=== PATIENT | female | born 1995 | race Two or more races ===

== ENCOUNTER → 2020-04-02 16:06 | Outpatient (BNVA) | payer MEDICAID, SELFPAY | PROVIDERS: Family Provider Family Medicine; Visit Provider Nurse Practitioner Family | DX: Z34.92 Encounter for supervision of normal pregnancy, unspecified, second trimester (principal); Z3A.18 18 weeks gestation of pregnancy; Z20.828 Contact with and (suspected) exposure to other viral communicable diseases | CPT/HCPCS: 81025; 87635 ==

== ENCOUNTER → 2020-11-20 15:22 | Outpatient (BNVA) | payer MEDICAID, SELFPAY | PROVIDERS: Family Provider Family Medicine; Visit Provider Nurse Practitioner | DX: Z32.01 Encounter for pregnancy test, result positive (principal); Z3A.18 18 weeks gestation of pregnancy; N91.2 Amenorrhea, unspecified | CPT/HCPCS: 81025 ==

== ENCOUNTER → 2020-12-13 11:38 | Outpatient (BNVA) | payer MEDICAID, SELFPAY | PROVIDERS: Family Provider Family Medicine; Visit Provider Nurse Practitioner Women's Health | DX: O99.340 Other mental disorders complicating pregnancy, unspecified trimester (principal); F32.9 Major depressive disorder, single episode, unspecified; F41.9 Anxiety disorder, unspecified; Z87.59 Personal history of other complications of pregnancy, childbirth and the puerperium | CPT/HCPCS: 81000 ==

== ENCOUNTER → 2020-12-18 15:00 | Outpatient (BNVA) | payer MEDICAID, SELFPAY | PROVIDERS: Family Provider Family Medicine; Visit Provider Obstetrics & Gynecology | DX: Z34.80 Encounter for supervision of other normal pregnancy, unspecified trimester (principal) | CPT/HCPCS: 80307; 81000; 82607; 82728; 82746; 83550; 85027; 86592; 86762; 86787; 86803; 86850; 86900; 87086; 87340; 87806 ==

== ENCOUNTER → 2021-01-08 15:37 | Outpatient (BNVA) | payer MEDICAID, SELFPAY | PROVIDERS: Family Provider Family Medicine; Visit Provider Obstetrics & Gynecology | DX: Z34.80 Encounter for supervision of other normal pregnancy, unspecified trimester (principal); F41.9 Anxiety disorder, unspecified; F32.9 Major depressive disorder, single episode, unspecified | CPT/HCPCS: 81000; 87491; 87591; 88175 ==

== ENCOUNTER → 2021-01-29 16:16 | Outpatient (BNVA) | payer MEDICAID, SELFPAY | PROVIDERS: Family Provider Family Medicine; Visit Provider Nurse Practitioner Women's Health | DX: Z34.80 Encounter for supervision of other normal pregnancy, unspecified trimester (principal) | CPT/HCPCS: 84315; 87077; 87086; 87184 ==

== ENCOUNTER → 2021-03-26 08:30 | Outpatient (BNVA) | payer MEDICAID, SELFPAY | PROVIDERS: Family Provider Family Medicine; Visit Provider Nurse Practitioner Women's Health | DX: O99.019 Anemia complicating pregnancy, unspecified trimester (principal); R82.71 Bacteriuria; O99.320 Drug use complicating pregnancy, unspecified trimester; F41.9 Anxiety disorder, unspecified; F32.9 Major depressive disorder, single episode, unspecified; D64.9 Anemia, unspecified; Z3A.00 Weeks of gestation of pregnancy not specified | CPT/HCPCS: 80307; 81000; 85025; 87086 ==

== ENCOUNTER → 2021-04-23 12:00 | Outpatient (BNVA) | payer MEDICAID, SELFPAY | PROVIDERS: Family Provider Family Medicine; Visit Provider Nurse Practitioner Women's Health | DX: O99.320 Drug use complicating pregnancy, unspecified trimester (principal); F41.9 Anxiety disorder, unspecified; F32.9 Major depressive disorder, single episode, unspecified; R82.71 Bacteriuria; O99.019 Anemia complicating pregnancy, unspecified trimester | CPT/HCPCS: 81000; 82950; 85025 ==

== ENCOUNTER → 2021-05-07 10:37 | Outpatient (BNVA) | payer MEDICAID, SELFPAY | PROVIDERS: Family Provider Family Medicine; Visit Provider Obstetrics & Gynecology | DX: Z34.80 Encounter for supervision of other normal pregnancy, unspecified trimester (principal); Z78.9 Other specified health status | CPT/HCPCS: 81000 ==

== ENCOUNTER → 2021-05-14 15:27 | Outpatient (BNVA) | payer MEDICAID, SELFPAY | PROVIDERS: Family Provider Family Medicine; Visit Provider Internal Medicine | DX: O99.019 Anemia complicating pregnancy, unspecified trimester (principal) | CPT/HCPCS: 83550; 85045 ==

== ENCOUNTER → 2021-05-21 10:43 | Outpatient (BNVA) | payer MEDICAID, SELFPAY | PROVIDERS: Family Provider Family Medicine; Visit Provider Obstetrics & Gynecology | DX: Z34.80 Encounter for supervision of other normal pregnancy, unspecified trimester (principal) | CPT/HCPCS: 80307; 81000 ==

== ENCOUNTER → 2021-06-02 15:51 | Outpatient (BNVA) | payer MEDICAID, SELFPAY | PROVIDERS: Family Provider Family Medicine; Visit Provider Obstetrics & Gynecology | DX: Z34.80 Encounter for supervision of other normal pregnancy, unspecified trimester (principal) | CPT/HCPCS: 81000 ==

== ENCOUNTER → 2021-06-18 09:44 | Outpatient (BNVA) | payer MEDICAID, SELFPAY | PROVIDERS: Family Provider Family Medicine; Visit Provider Obstetrics & Gynecology | DX: Z34.80 Encounter for supervision of other normal pregnancy, unspecified trimester (principal) | CPT/HCPCS: 81000; 85025 ==

== ENCOUNTER → 2021-06-24 10:44 | Outpatient (BNVA) | payer MEDICAID, SELFPAY | PROVIDERS: Family Provider Family Medicine; Visit Provider Obstetrics & Gynecology | DX: Z34.80 Encounter for supervision of other normal pregnancy, unspecified trimester (principal) | CPT/HCPCS: 81000 ==

== ENCOUNTER 2021-06-29 20:49 | Outpatient (CLI) | payer MEDICAID, SELFPAY ==
[2021-06-29 20:40] VITALS: BMI 24.3
[2021-06-29 20:59] VITALS: BP 116/56; PULSE 70; TEMP 36.3
[2021-06-29 21:21] VITALS: RESP 16
[2021-06-29 21:27] LABS: Nitrazine Paper, PH Negative
[2021-06-29 22:04] VITALS: BP 107/59; PULSE 81; TEMP 36.7
[2021-06-29 22:18] VITALS: BP 107/59; PULSE 81; RESP 16; TEMP 36.7
== END 2021-06-29 22:18 | disposition home or self-care (01) ==
LOC: OPOB 20:51 → OBGYN 20:52
PROVIDERS: Family Provider Family Medicine; Visit Provider Obstetrics & Gynecology
DX: O26.899 Other specified pregnancy related conditions, unspecified trimester (principal); Z3A.00 Weeks of gestation of pregnancy not specified; R10.9 Unspecified abdominal pain; N89.8 Other specified noninflammatory disorders of vagina
CPT/HCPCS: 59025; 83986; 99211

== ENCOUNTER → 2021-07-02 14:38 | Outpatient (BNVA) | payer MEDICAID, SELFPAY | PROVIDERS: Family Provider Family Medicine; Visit Provider Nurse Practitioner Women's Health | DX: Z34.80 Encounter for supervision of other normal pregnancy, unspecified trimester (principal) | CPT/HCPCS: 81000 ==

== ENCOUNTER 2021-07-04 09:49 | Inpatient (IN) | payer MEDICAID, SELFPAY ==
[2021-07-04] VITALS (18 sets, daily range): BP systolic 95–134; BP diastolic 53–70; PULSE 68–93; RESP 16–18; TEMP 36.5–36.8; O2SAT 97–99; BMI 24.3
[2021-07-04 09:56] LABS: Basophils # 0.1 10^3/uL (0.0-0.1); Basophils % 0.6 %; Eosinophils # 0.1 10^3/uL (0.0-0.8); Eosinophils % 1.1 %; Hematocrit 31.2 % (37.0-47.0); Hemoglobin 10.5 g/dL (11.5-15.3); Lymphocytes # 1.8 10^3/uL (0.8-4.8); Lymphocytes % 16.1 %; Mean Corpuscular HGB Conc 33.7 g/dL (30.0-36.0); Mean Corpuscular Hemoglobin 28.6 pg (28.0-34.0); Mean Platelet Volume 9.7 fL (7.4-10.4); Monocytes % 8.8 %; Neutrophils # 7.95 10^3/uL (1.8-7.7); Neutrophils % 72.8 %; Nucleated Red Blood Cells % 0 %; Platelet Count 182 10^3/cmm (130-400); Red Blood Count 3.67 10^6/uL (4.1-5.3); Red Cell Distribution Width 13.2 % (12.1-15.1); White Blood Count 10.9 10^3/uL (4.0-10.0)
[2021-07-04] MEDS: dextrose 5%-lactated ringers 1,000 ML 125 ML IV (10:03)
[2021-07-04] MEDS: ampicillin 2,000 MG in sodium chloride 0.9% (plus) 50 ML 100 MG IV (10:04)
[2021-07-04] MEDS: oxytocin 30 UNIT/500 ML BAG 600 UNIT IV (10:28)
--- NOTE | 2021-07-04 10:36 | PM.OPHPUD ---
Labor & Delivery H&P Update Date of Procedure: July 04, 2021 Date H&P Performed: 07/02/21 H&P update information: I have reviewed H&P completed within last 30 days, I have examined patient prior to procedure and Changes to prior documentation as noted here (cervix: 10/100%/+1/VX/SROM clear) Admission Diagnosis:
--- NOTE | 2021-07-04 10:37 | PM.DELIVERY ---
Delivery Note: Date of delivery: July 04, 2021 Pre-delivery diagnoses: Term Post-delivery diagnoses: Term delivered Op report anesthesia: None Estimated blood loss (mL): 300 Pre-Delivery Course: The patient is a 26yo 5, Para 3,0,1,3 at 38+2 weeks EGA who [place] [facility] [place] [facility]. She has been experiencing painful uterine contractions for the past 3 hours. The contractions are occurring at 1 minute intervals with approximately 40 second duration. She continues to feel movement between the contractions. She refers vaginal bleeding or rupture of membranes. Initial exam by the nurse upon arrival to L&D was 7 cm 90% effacement she progressed rapidly to full dilation and 100% effacement. LMP of 10/09/2020 EDC of 07/16/2021 CC: Onset of labor at term. HPI: Received appropriate care. Daily vitamins since start of care. care complicated by anemia during , drug use during and GBS bacteriuria. labs have all been normal, including negative for HIV. She was found to positive for Group B Strep from screening at 36 weeks. She has gained approximately 20 lbs throughout the . She denies a history of HTN during . Glucose tolerance screening for gestational diabetes was negative. Delivery: The patient was noted to be complete and pushing, so was placed in the dorsal lithotomy position, prepped and draped in the usual sterile fashion for a vaginal delivery. Pt. Noted to have no anesthesia. At 1020 the patient delivered a viable female infant at 38 weeks weighing 2470 g with scores of 9 and 9 at one and five minutes, respectively. The vertex was delivered spontaneously over an intact perineum. The patient was asked to push and the head delivered spontaneously in the RICO position, over an intact perineum. A nuchal cord was checked and none noted. The anterior shoulder delivered easily and the posterior shoulder followed. The remainder of the was easily delivered and the oropharynx and nasopharynx was bulb suctioned. The was noted to have spontaneous cry and spontaneous movement of all four extremities. The cord was clamped x 2 and cut and noted to have 2 arteries and one vein. The infant was passed to the mother's abdomen where nursing personnel were in attendance. Cord blood and cord pH were then obtained. The placenta delivered intact spontaneously and the uterus was explored. 20 units of Pitocin was placed in the IV bag to firm the uterus. Examination of the cervix and vaginal vault did not reveal any lacerations. A vaginal pack was then placed. Examination of the perineum showed no lacerations. The vaginal pack was then removed. The patient tolerated this procedure well, and recovered in L&D with her infant in their LDR room. All sponge and needle counts were correct. History History History 5 Term 3 Miscarriages/Ectopic 1 0 Living Children 3 A&P Assessment and plan (1) Anemia affecting , antepartum: Status: Acute (2) Drug use affecting , antepartum: Status: Acute (3) Group B streptococcal bacteriuria: Status: Acute (4) Anxiety and depression: Status: Acute (5) Term delivered: Status: Acute Coding Level of Care Code Acute Magneto Repairer for Chg Fwd Diagnoses Term delivered O80 Anemia affecting , antepartum O99.019 Drug use affecting , antepartum O99.320 Group B streptococcal bacteriuria R82.71 Anxiety and depression F41.9; F32.9
[2021-07-04 10:48] LABS: Amphetamines Screen Urine Negative (Negative); Barbiturates Screen Urine Negative (Negative); Benzodiazepines Screen Urine Negative (Negative); Cocaine Screen Urine Negative (Negative); Opiate Screen Urine Negative (Negative); PCP Screen Urine Negative (Negative); THC Screen Urine Positive (Negative)
[2021-07-04] MEDS: HYDROcodone-acetaminophen 5-325 mg Tablet PO ×2 (12:18→17:35)
[2021-07-04] MEDS: ampicillin 2,000 MG in sodium chloride 0.9% (plus) 50 ML IV (12:20)
[2021-07-04] MEDS: ibuprofen 800 mg tablet PO ×2 (15:35→20:41)
[2021-07-04] MEDS: docusate sodium 100 mg Capsule PO (17:35)
[2021-07-04] MEDS: benzocaine-menthol 78 gm Canister 1 SPRAY TOPICAL (20:40)
[2021-07-04] MEDS: lanolin oint 7 gm 1 APPLIC TOPICAL (20:41)
[2021-07-04 23:00] LABS: Hematocrit 28.3 % (37.0-47.0); Hemoglobin 9.4 g/dL (11.5-15.3); Mean Corpuscular HGB Conc 33.2 g/dL (30.0-36.0); Mean Corpuscular Hemoglobin 28.8 pg (28.0-34.0); Mean Corpuscular Volume 86.8 fl (81-99); Mean Platelet Volume 9.7 fL (7.4-10.4); Platelet Count 172 10^3/cmm (130-400); Red Blood Count 3.26 10^6/uL (4.1-5.3); Red Cell Distribution Width 13.5 % (12.1-15.1); White Blood Count 12.2 10^3/uL (4.0-10.0)
[2021-07-05 00:40] VITALS: BP 123/70; PULSE 89; RESP 16; TEMP 36.5; O2SAT 99
[2021-07-05] MEDS: HYDROcodone-acetaminophen 5-325 mg Tablet PO ×3 (01:42→17:43)
[2021-07-05 04:40] VITALS: BP 103/64; PULSE 66; RESP 16; TEMP 36.6; O2SAT 98
[2021-07-05] MEDS: acetaminophen 325 mg Tablet 650 MG PO (06:01)
--- NOTE | 2021-07-05 06:15 | PC.NURSE ---
Patient complaining of increased uterine pain after breast feeding . This nurse checked the MAR and patient can have acetaminophen at this time and [place] at 0742. Patient also give a K-pad at this time to help with pain and discomfort.
[2021-07-05] MEDS: ibuprofen 800 mg tablet PO ×2 (08:01→16:31)
[2021-07-05] MEDS: prenatal vitamin Capsule 1 CAP PO (08:01)
[2021-07-05] MEDS: docusate sodium 100 mg Capsule PO ×2 (08:01→17:43)
[2021-07-05 09:30] VITALS: BP 91/54; PULSE 73; RESP 16; TEMP 36.4
--- NOTE | 2021-07-05 13:48 | PM.DCS ---
Discharge Providers Date of Admission: 07/04/21 09:49 Date of Discharge: July 05, 2021 Attending Provider at Admission: Conrad Ward MD Attending Provider at Discharge: Conrad Ward MD Primary Care Provider: Daniel Cordero DO Diagnoses at Discharge Discharge Diagnosis (1) Term delivered: Status: Acute (2) Anemia affecting , antepartum: Status: Acute (3) Drug use affecting , antepartum: Status: Acute (4) Group B streptococcal bacteriuria: Status: Acute (5) Anxiety and depression: Status: Acute Permanent problem details: Diagnosed first at the age of 14 and was on medication. Has been on medication on and off in the past though not for a long while. Does not have a therapist. Reason for Visit Reason for Visit: labor Hospital Course Hospital Course The patient was admitted in active labor. she had spontaneous delivery of a term female . She is doing well on PPD#1 and is ready for discharge. Physical Exam Narrative: EXAM NARRATIVE: The patient is doing well today. She is breast feeding. minimal lochia. She is ambulating and urinating without difficulty. Const: COMMON NORMALS: no acute distress, average body habitus, patient oriented x3, no limitations, healthy appearing, alert and well nourished GENERAL APPEARANCE: cooperative, comfortable, well kempt and well developed ORIENTATION/CONSCIOUSNESS: Yes awake, Yes oriented to person, Yes oriented to place and Yes oriented to time Resp: COMMON NORMALS: normal respiratory effort EFFORT & INSPECTION: Yes able to speak in complete sentences GI: COMMON NORMALS: Soft to palpation and non-tender PALPATION: Yes Soft to palpation Extremity: COMMON NORMALS: no calf tenderness Neuro: COMMON NORMALS: patient oriented x3 SENSORIUM/ORIENTATION: Yes alert, Yes oriented to person, Yes oriented to place and Yes oriented to time Psych: APPEARANCE: Yes well kempt Discharge Data Data Completed and Pending: Labs from last 24 hours 07/04/21 22:45 WBC 12.2 H RBC 3.26 L Hgb 9.4 L Hct 28.3 L MCV 86.8 MCH 28.8 MCHC 33.2 RDW 13.5 Plt Count 172 MPV 9.7 Vitals: Last Vital Signs Temp 97.6 F 07/05/21 09:30 Pulse 73 07/05/21 09:30 Resp 16 12/25/21 09:30 BP 91/54 07/05/21 09:30 Pulse Ox 98 07/05/21 04:40 Discharge Plan Discharge Patient Disposition: Home Condition: Stable Prescriptions: Continued ferrous sulfate 325 mg (65 mg iron) tablet,delayed release (DR/EC) 325 mg PO BID Qty: 60 RF: 1 fluoxetine 20 mg capsule 20 mg PO DAILY Qty: 30 RF: 6 Multi 27-800 mg-mcg tablet 1 tab PO DAILY Qty: 30 RF: 10 (DME) breast pump [Pump In Style Advanced] Device See Rx Instructions .MEDSUPPLY Qty: 1 RF: 0 Discharge Orders: Discharge Order (Routine); Ordered 07/05/21 Ordered By: Rossnaa Galvan Patient Instructions: Opioid Safety Discharge Attestations Time Spent in Discharge Care*: less than 30 min Quality Metrics Clinical Quality Measures During this hospital stay, did patient experience: None Coding Level of Care Code Acute Chg FW DC note Diagnoses Term delivered O80 Anemia affecting , antepartum O99.019 Drug use affecting , antepartum O99.320 Group B streptococcal bacteriuria R82.71 Anxiety and depression F41.9; F32.9
[2021-07-05 16:20] VITALS: BP 101/63; PULSE 79; RESP 16; TEMP 36.7
[2021-07-05 17:45] VITALS: BP 101/63; PULSE 79; RESP 16; TEMP 36.7
== END 2021-07-05 17:45 | disposition home or self-care (01) | DRG 807 ==
LOC: OPOB 09:50 → OBGYN 09:50
PROVIDERS: Admitting Provider Obstetrics & Gynecology; Family Provider Family Medicine; Visit Provider Obstetrics & Gynecology
DX: O99.324 Drug use complicating childbirth (principal); Z37.0 Single live birth; F12.90 Cannabis use, unspecified, uncomplicated; O99.02 Anemia complicating childbirth; D64.9 Anemia, unspecified; O99.820 Streptococcus B carrier state complicating pregnancy; O99.344 Other mental disorders complicating childbirth; F41.8 Other specified anxiety disorders; Z3A.38 38 weeks gestation of pregnancy; Z87.891 Personal history of nicotine dependence
CPT/HCPCS: 36415; 59025; 59409; 80306; 85025; 85027; 99211; J0290

== ENCOUNTER → 2022-05-04 08:37 | Outpatient (BNVA) | payer MEDICAID, SELFPAY | PROVIDERS: Family Provider Family Medicine; Visit Provider Obstetrics & Gynecology | DX: Z34.90 Encounter for supervision of normal pregnancy, unspecified, unspecified trimester (principal) | CPT/HCPCS: 80307; 84315; 84443; 85025; 86592; 86762; 86803; 86850; 86900; 87086; 87340; 87491; 87591; 87661; 87806 ==

== ENCOUNTER → 2022-05-22 09:40 | Outpatient (BNVA) | payer MEDICAID, SELFPAY | PROVIDERS: Family Provider Family Medicine; Visit Provider Obstetrics & Gynecology | DX: O09.30 Supervision of pregnancy with insufficient antenatal care, unspecified trimester (principal); Z3A.00 Weeks of gestation of pregnancy not specified | CPT/HCPCS: 81000; 82950; 85025 ==

== ENCOUNTER → 2022-06-12 11:21 | Outpatient (BNVA) | payer MEDICAID, SELFPAY | PROVIDERS: Family Provider Family Medicine; Visit Provider Obstetrics & Gynecology | DX: Z34.80 Encounter for supervision of other normal pregnancy, unspecified trimester (principal) | CPT/HCPCS: 82728; 82746; 82951; 82952; 83550 ==

== ENCOUNTER → 2022-06-26 08:06 | Outpatient (BNVA) | payer MEDICAID, SELFPAY | PROVIDERS: Family Provider Family Medicine; Visit Provider Obstetrics & Gynecology | DX: Z34.80 Encounter for supervision of other normal pregnancy, unspecified trimester (principal) | CPT/HCPCS: 81000; 85025 ==

== ENCOUNTER → 2022-07-10 14:00 | Outpatient (BNVA) | payer MEDICAID, SELFPAY | PROVIDERS: Family Provider Family Medicine; Visit Provider Obstetrics & Gynecology | DX: Z34.80 Encounter for supervision of other normal pregnancy, unspecified trimester (principal) | CPT/HCPCS: 80307; 81003 ==

== ENCOUNTER → 2022-07-20 10:00 | Outpatient (BNVA) | payer MEDICAID, SELFPAY | PROVIDERS: Family Provider Family Medicine; Visit Provider Obstetrics & Gynecology | DX: Z34.80 Encounter for supervision of other normal pregnancy, unspecified trimester (principal) | CPT/HCPCS: 87081 ==

== ENCOUNTER → 2022-07-27 15:50 | Outpatient (BNVA) | payer MEDICAID, SELFPAY | PROVIDERS: Family Provider Family Medicine; Visit Provider Obstetrics & Gynecology | DX: Z34.80 Encounter for supervision of other normal pregnancy, unspecified trimester (principal) | CPT/HCPCS: 81000 ==

== ENCOUNTER 2022-08-03 14:34 | Inpatient (IN) | payer MEDICAID, SELFPAY ==
[2022-08-03] VITALS (87 sets, daily range): BP systolic 93–150; BP diastolic 44–77; PULSE 68–144; RESP 15–18; TEMP 36.6–37.1; O2SAT 92–100; BMI 23.7
[2022-08-03 15:08] LABS: Basophils # 0.1 10^3/uL (0.0-0.1); Basophils % 0.5 %; Eosinophils # 0.1 10^3/uL (0.0-0.8); Eosinophils % 0.7 %; Hematocrit 29.2 % (37.0-47.0); Hemoglobin 9.3 g/dL (11.5-15.3); Lymphocytes # 1.9 10^3/uL (0.8-4.8); Lymphocytes % 14.9 %; Mean Corpuscular HGB Conc 31.8 g/dL (30.0-36.0); Mean Corpuscular Hemoglobin 26.7 pg (28.0-34.0); Mean Corpuscular Volume 83.9 fl (81-99); Monocytes # 0.9 10^3/uL (0.2-0.9); Monocytes % 7.3 %; Neutrophils # 9.52 10^3/uL (1.8-7.7); Nucleated Red Blood Cells % 0 %; Platelet Count 186 10^3/cmm (130-400); Red Blood Count 3.48 10^6/uL (4.1-5.3); Red Cell Distribution Width 13.7 % (12.1-15.1); White Blood Count 12.5 10^3/uL (4.0-10.0)
[2022-08-03] MEDS: dextrose 5%-lactated ringers 1,000 ML 125 ML IV ×2 (15:08→20:01)
[2022-08-03] MEDS: ampicillin 2,000 MG in sodium chloride 0.9% (plus) 50 ML 100 MG IV (15:08)
[2022-08-03 15:30] LABS: Amphetamines Screen Urine Negative (Negative); Barbiturates Screen Urine Negative (Negative); Benzodiazepines Screen Urine Negative (Negative); Cocaine Screen Urine Negative (Negative); Opiate Screen Urine Negative (Negative); PCP Screen Urine Negative (Negative); THC Screen Urine Positive (Negative)
[2022-08-03] MEDS: oxytocin 30 UNIT/500 ML BAG IV (16:03)
--- NOTE | 2022-08-03 16:48 | P.HP_ITS ---
Providers/Chief Complaint Admitting Physician: Monika Mao DO Primary ROAST MASTER: Dr. Galvan Primary Care Provider: Daniel Cordero DO Chief Complaint: CONTRACTIONS HPI ROAST MASTER History of Present Illness Ruth Frazier is a 27 year old female [id number] with RYLAN 08/07/2022 at 39 point 3/7 weeks gestation. Patient presented to labor and delivery with complaints of uterine contractions onset 10:00 this morning every 5 to 7 minutes. She denied any vaginal bleeding or leakage of fluid. Patient denies any complications through this course. After observation of patient on EFM irregular contractions was noted patient was counseled on augmenting labor versus discharge to home and returning when contractions or at 2 to 4 minutes apart. Patient requested to stay for induction of labor. EFM?category 1 Cervix?4 to 5 cm / 80% effaced/-3 vertex presentation confirmed by ultrasound. AROM?meconium stained fluid noted. Pitocin augmentation presently at 3 milliunits. Contractions mild and irregular. Present Details : 5 Para: 4 Labs Rubella: Immune RPR: Negative GBS: Positive Review of Systems General: Reports: 10 or more systems reviewed and unremarkable except in HPI and below Medications/Allergies Home Medications Medication Instructions Recorded Confirmed Last Taken Type vit 122-ferrous fumarate 1 tab PO DAILY #30 tabs 11/20/20 08/03/22 1 Day Ago Rx 27 mg iron-folic acid 800 mcg ~06/28/21 tablet ( Multi) citalopram 10 mg tablet (Celexa) 10 mg PO DAILY #30 tabs 05/06/22 08/03/22 Unknown Rx ferrous sulfate 325 mg (65 mg 325 mg PO BID #60 tabs 06/26/22 08/03/22 Unknown Rx iron) tablet Allergies Allergy/AdvReac Type Severity Reaction Status Date / Time No Known Allergies Allergy Verified 07/27/22 15:04 PFS ROAST MASTER PFSH: Medical History Anxiety and depression Diagnosed first at the age of 14 and was on medication. Has been on medication on and off in the past though not for a long while. Does not have a therapist. No pertinent past medical history Denies diabetes, asthma, hypertension, seizures, DVT/PE PCP: [facility] Surgical History History of tonsillectomy and adenoidectomy At the age of 12 Hx of appendectomy 2014--laparoscopic procedure Hx of hernia repair 2014--done at same time as appendectomy. Per patient no mesh was used S/P dilation and curettage October 2019 for VIP Family History Mother Breast cancer Diagnosed at approximately age 50 Unknown Unknown family medical history patient was adopted and does not know all the details of her family history. Denies family history of Colon cancer Ovarian cancer Diabetes Heart disease Hyperlipidemia Bleeding disorder Hypertension Uterine cancer Thyroid disease Stroke History History History 6 Term 4 0 Miscarriages/Ectopic 1 Living Children 4 Care RYLAN Calculator Estimated Delivery Date Method Current WG Current Estimate 08/07/22 Ultrasound #1 39w 3d Vitals/I&O/Wt Last Vital Signs Pulse 79 08/03/22 16:39 Resp 15 08/03/22 14:46 BP 114/55 08/03/22 16:39 O2 Del Method 08/03/22 15:24 08/03/22 08/03/22 08/03/22 06:59 14:59 22:59 Intake Total 1.517 / 1.517 Balance 1.517 / 1.517 Weight last 48 hrs Weight 66.678 kg Physical Exam Narrative: 27-year-old -[place] female alert and oriented no acute distress. HENMT: COMMON NORMALS: normocephalic, moist oral mucous membranes and dentition normal Resp: COMMON NORMALS: normal respiratory effort, No retractions and clear to auscultation bilaterally Cardio: COMMON NORMALS: no JVD, regular rate and regular rhythm Back/Pelvis: OTHER: See above for pelvic exam Extremity: COMMON NORMALS: no clubbing, cyanosis or edema, no calf tenderness and no pedal edema Neuro: COMMON NORMALS: patient oriented x3, CN's II-XII intact bilaterally, moves all extremities and deep tendon reflexes 2+ bilaterally Data 08/03/22 14:55 Results OB Labs labs reviewed. A&P Assessment and plan (1) Supervision of other normal : A. 1. 27yo emale at 39.3 wk IUP with Irregular Contractions 2. GBS Positive 3. Hx of Anxiety 4. UDS Positive (THC) 5. Anemia P. Admit for Augmentation of labor (2) GBS (group B Streptococcus carrier), +RV culture, currently : Attestations 2 Medical Necessity Statement*: Patient admitted to labor and delivery for augmentation of labor. Coding Level of Care Code Acute Code for Chg Fwd Diagnoses Supervision of other normal Z34.80 GBS (group B Streptococcus carrier), +RV culture, currently O99.820
[2022-08-03] MEDS: ampicillin 1,000 MG in sodium chloride 0.9% (plus) 50 ML 100 MG IV (17:26)
[2022-08-03] MEDS: fentaNYL 50 mcg/mL INJ 2mL IVP ×2 (17:26→18:08)
[2022-08-03] MEDS: miSOPROStol 200 mcg Tablet 800 MCG PR (18:53)
[2022-08-03 19:17] LABS: Basophils # 0.1 10^3/uL (0.0-0.1); Basophils % 0.4 %; Eosinophils # 0.1 10^3/uL (0.0-0.8); Eosinophils % 0.7 %; Hematocrit 22.5 % (37.0-47.0); Lymphocytes # 1.8 10^3/uL (0.8-4.8); Lymphocytes % 14.4 %; Mean Corpuscular HGB Conc 31.1 g/dL (30.0-36.0); Mean Corpuscular Hemoglobin 27.7 pg (28.0-34.0); Mean Corpuscular Volume 88.9 fl (81-99); Mean Platelet Volume 9.8 fL (7.4-10.4); Monocytes # 1.1 10^3/uL (0.2-0.9); Monocytes % 8.7 %; Neutrophils # 9.23 10^3/uL (1.8-7.7); Neutrophils % 75.1 %; Nucleated Red Blood Cells % 0 %; Platelet Count 171 10^3/cmm (130-400); Red Blood Count 2.53 10^6/uL (4.1-5.3); Red Cell Distribution Width 13.7 % (12.1-15.1); White Blood Count 12.3 10^3/uL (4.0-10.0)
--- NOTE | 2022-08-03 19:26 | ANES.PREANE2 ---
Pre-Anesthetic Assessment Height/Weight: Height 1.68 m Weight 66.678 kg Pulse Resp BP O2 Del Method 105 H 18 146/58 08/03/22 18:25 08/03/22 18:08 08/03/22 18:25 08/03/22 15:24 Was Beta Mukul taken within 24 hours: N/A Was Clonidine taken within 24 hours: N/A Social No alcohol and No tobacco Exam alert, oriented x 3, clear to auscultation bilaterally and regular rate & rhythm Airway Submandibular: within normal limits Cervical ROM: within normal limits Mallampati: Class II Dentition: full History/ROS No significant history except as noted and No significant complaints Pulmonary None reported CV/HEM None reported None reported Hepatic None reported GI None reported Metabolic None reported Musc/skel None reported Neuropsych Anxiety and Depression Anesthetic Plan ASA status: 2E Anesthesia: Anesthesia Evaluation and General Risk of > 500 ml blood loss (7ml/kg in children): Yes, adequate IV access and fluids planned Medications/Allergies Home Medications Medication Instructions Recorded Confirmed Last Taken Type vit 122-ferrous fumarate 1 tab PO DAILY #30 tabs 11/20/20 08/03/22 1 Day Ago Rx 27 mg iron-folic acid 800 mcg ~06/28/21 tablet ( Multi) citalopram 10 mg tablet (Celexa) 10 mg PO DAILY #30 tabs 05/06/22 08/03/22 Unknown Rx ferrous sulfate 325 mg (65 mg 325 mg PO BID #60 tabs 06/26/22 08/03/22 Unknown Rx iron) tablet Allergies Allergy/AdvReac Type Severity Reaction Status Date / Time No Known Allergies Allergy Verified 07/27/22 15:04 Current Medications Generic Name Dose Route Start Last Admin Trade Name Freq PRN Reason Stop Dose Admin Fentanyl 25 - 100 mcg 08/03/22 17:21 08/03/22 18:08 Fentanyl 50 Mcg/Ml Inj 2ml IVP 50 mcg Q1H PRN Administration SEVERE PAIN Dextrose/Lactated Ringer's 1,000 mls @ 125 mls/hr 08/03/22 14:45 08/03/22 15:08 Dextrose 5%-Lactated Ringers IV 125 mls/hr .Q8H PEBBLES Administration Tranexamic Acid 1,000 mg/ 110 mls @ 330 mls/hr 08/03/22 14:33 08/03/22 19:14 Sodium Chloride IV Infused Q30M PRN Infusion BLEEDING Ampicillin Sodium 1,000 mg/ 50 mls @ 100 mls/hr 08/03/22 18:45 08/03/22 17:56 Sodium Chloride IV Infused Q4H PEBBLES Infusion Protocol Oxytocin 30 unit in 500 mls @ 1 mls/hr 08/03/22 16:00 08/03/22 16:44 Pitocin IV 5 milliunit/min .Q24H PEBBLES 5 mls/hr Titration Protocol 1 MILLIUNIT/MIN [facility] Anesthesia Medical History Anxiety and depression Diagnosed first at the age of 14 and was on medication. Has been on medication on and off in the past though not for a long while. Does not have a therapist. No pertinent past medical history Denies diabetes, asthma, hypertension, seizures, DVT/PE PCP: [facility] Surgical History History of tonsillectomy and adenoidectomy At the age of 12 Hx of appendectomy 2014--laparoscopic procedure Hx of hernia repair 2014--done at same time as appendectomy. Per patient no mesh was used S/P dilation and curettage October 2019 for VIP Family History Mother Breast cancer Diagnosed at approximately age 50 Unknown Unknown family medical history patient was adopted and does not know all the details of her family history. Denies family history of Colon cancer Ovarian cancer Diabetes Heart disease Hyperlipidemia Bleeding disorder Hypertension Uterine cancer Thyroid disease Stroke Female Reproductive History : 5 Para: 4 Data Anesthesia 08/03/22 18:55 Short CBC 08/03/22 08/03/22 Range/Units 14:55 18:55 WBC 12.5 H 12.3 H (4.0-10.0) 10^3/uL Hgb 9.3 L 7.0 L (11.5-15.3) g/dL Hct 29.2 L 22.5 L (37.0-47.0) % MCV 83.9 88.9 D (81-99) fl Plt Count 186 171 (130-400) 10^3/cmm Neut % (Auto) 76.0 75.1 % Neut # (Auto) 9.52 H 9.23 H (1.8-7.7) 10^3/uL Cardiac Studies: No Data to Display
--- NOTE | 2022-08-03 19:27 | PC.NURSE ---
Dr. Mao at bedside for removal of placenta. Patient to OR at 1830 T.O. 1838, start time of 184, Pit bolusing at 185, end time 1899. Pacu time start at 1914. CELE SEWELL
--- NOTE | 2022-08-03 19:46 | P.PCNOB_ITS ---
Delivery Note: Date of delivery: August 03, 2022 Pre-delivery diagnoses: 39.3 wk IUP Procedure: After patient was noted to be completely dilated +2 station, patient was prepared for delivery. Vertex presented in OA presentation with a tight nuchal cord being clamped and cut at the perineum. Spontaneous cry was noted the baby was taken to the field warmer and DeLee suction due to meconium stained fluid. Cord blood was drawn and handed off. 8/9 Wt 6#11 The uterus was massaged and placental membrane presented. After waiting approximately 30 minutes the placenta did not release and present. Manual extra ction was attempted with no success. Retained placenta was discussed with the pt and shawn, and need for surgical removal reviewed, both verbalized understanding, consent signed. The OR team were assembled and patient was taken back for manual extraction and curettage. After removal of the placenta Pitocin was given and a bolus manner, Cytotec was placed rectally. A stat H&H was drawn and sent to the lab. EBL?1000 cc Complications?none Anesthesia?General. Pt awakened in Stable condition. Delivering Physician: Mayco Estimated blood loss (mL): 1,000 Findings: Retained placenta Delivery: As Above Post-Delivery Status: stable with Acute Anemia (Hgb 7) post D/C. Will trnsfuse 2U PRBCs. History History History 6 Term 4 0 Miscarriages/Ectopic 1 Living Children 4 A&P Assessment and plan (1) Supervision of other normal : A. S/P viable female with Retained Placenta S/P Manual Removal of Placenta with Curettage P. Transfuse 2U PRBCs. Coding Level of Care Code Acute Code for Chg Fwd Diagnoses Supervision of other normal Z34.80
[2022-08-03] MEDS: sodium chloride 0.9% (100 ml) 100 ML (20:39)
[2022-08-03] MEDS: oxytocin 30 UNIT/500 ML BAG 150 UNIT IV (21:16)
[2022-08-03] MEDS: benzocaine-menthol 78 gm Canister 1 SPRAY TOPICAL (21:47)
[2022-08-03] MEDS: ibuprofen 800 mg tablet PO (21:47)
[2022-08-03] MEDS: lanolin oint 7 gm 1 APPLIC TOPICAL (21:47)
--- NOTE | 2022-08-03 22:45 | PC.NURSE ---
See vital signs for blood transfusion under Vital Signs intervention.
[2022-08-04] VITALS (17 sets, daily range): BP systolic 85–114; BP diastolic 49–63; PULSE 71–100; RESP 15–16; TEMP 36.6–36.7; O2SAT 98–100
[2022-08-04] MEDS: HYDROcodone-acetaminophen 5-325 mg Tablet PO (05:20)
[2022-08-04 05:22] LABS: Hematocrit 26.5 % (37.0-47.0); Hemoglobin 8.6 g/dL (11.5-15.3); Mean Corpuscular HGB Conc 32.5 g/dL (30.0-36.0); Mean Corpuscular Hemoglobin 27.7 pg (28.0-34.0); Mean Corpuscular Volume 85.2 fl (81-99); Mean Platelet Volume 9.6 fL (7.4-10.4); Platelet Count 148 10^3/cmm (130-400); Red Blood Count 3.11 10^6/uL (4.1-5.3); Red Cell Distribution Width 14.4 % (12.1-15.1); White Blood Count 17.8 10^3/uL (4.0-10.0)
[2022-08-04] MEDS: ibuprofen 800 mg tablet PO ×2 (08:47→16:38)
[2022-08-04] MEDS: ferrous sulfate EC 325 mg Tablet PO (08:47)
[2022-08-04] MEDS: prenatal vitamin Capsule 1 CAP PO (08:47)
[2022-08-04] MEDS: docusate sodium 100 mg Capsule PO (08:47)
--- NOTE | 2022-08-04 09:30 | PC.NURSE ---
babatunde with [facility] her at bedside, this credit underwriter at bedside
--- NOTE | 2022-08-04 14:05 | PM.OBGYDC ---
Discharge Providers COMMERCIAL GREEN BUILDING ARCHITECT Date of Admission: 08/03/22 14:34 Date of Discharge: 08/04/22 Attending Provider at Admission: Monika Mao DO Attending Provider at Discharge: Monika Mao DO Primary COMMERCIAL GREEN BUILDING ARCHITECT: Cole Primary Care Provider: Daniel Cordero DO Diagnoses at Discharge Discharge Diagnosis (1) Supervision of other normal : Status: Acute (2) (spontaneous vaginal delivery): Status: Acute (3) Retained placenta with hemorrhage: Details from hospital stay: Manual removal of placenta in OR. EBL 1000ml. Transfused 2 U PRBCs. Status: Acute (4) GBS (group B Streptococcus carrier), +RV culture, currently : Status: Acute (5) Anxiety and depression: Status: Acute (6) Late care: Status: Acute Reason for Visit Reason for Visit: CONTRACTIONS Hospital Course Hospital Course 27-year-old female G6, P5 delivered on 08/03/2022 a viable female via . Retained placenta was encountered patient was taken to the OR for manual removal. EBL?approximately 1000 mL therefore since patient had started off with a low hemoglobin of 9 patient was transfused with 2 units packed red blood cells. Postop hemoglobin decreased to 7 and after transfusion increased to 8.6. Patient denies any headaches or visual changes, she denies any shortness of breath or chest pain. Her bleeding is light and she has had no excessive bleeding or passage of large clots. VSS?afebrile Abdomen?soft fundus firm Lochia?light Extremities?no edema, negative Homans' sign. Discussed discharge expectations with patient, no heavy lifting pushing and pulling no sex douching or tampons x6 weeks. Patient is to continue her home meds including her vitamins and iron and her Celexa for her depression. If patient has heavy bleeding or passage of large clots she is return to the hospital for evaluation. Patient verbalizes that she understands. Information Peripartum Data: Delivery Method: Vaginal Laceration description: None Episiotomy description: None complications: retained placenta History History History 6 Term 4 0 Miscarriages/Ectopic 1 Living Children 4 Discharge Data Studies Completed and Pending Laboratory Results WBC 17.8 10^3/uL (4.0-10.0) H 08/04/22 05:10 RBC 3.11 10^6/uL (4.1-5.3) L 08/04/22 05:10 Hgb 8.6 g/dL (11.5-15.3) L 08/04/22 05:10 Hct 26.5 % (37.0-47.0) L 08/04/22 05:10 MCV 85.2 fl (81-99) 08/04/22 05:10 MCH 27.7 pg (28.0-34.0) L 08/04/22 05:10 MCHC 32.5 g/dL (30.0-36.0) 08/04/22 05:10 RDW 14.4 % (12.1-15.1) 08/04/22 05:10 Plt Count 148 10^3/cmm (130-400) 08/04/22 05:10 MPV 9.6 fL (7.4-10.4) 08/04/22 05:10 Neut % (Auto) 75.1 % 08/03/22 18:55 Lymph % (Auto) 14.4 % 08/03/22 18:55 Rhea % (Auto) 8.7 % 08/03/22 18:55 Eos % (Auto) 0.7 % 08/03/22 18:55 Baso % (Auto) 0.4 % 08/03/22 18:55 Neut # (Auto) 9.23 10^3/uL (1.8-7.7) H 08/03/22 18:55 Lymph # (Auto) 1.8 10^3/uL (0.8-4.8) 08/03/22 18:55 Rhea # (Auto) 1.1 10^3/uL (0.2-0.9) H 08/03/22 18:55 Eos # (Auto) 0.1 10^3/uL (0.0-0.8) 08/03/22 18:55 Baso # (Auto) 0.1 10^3/uL (0.0-0.1) 08/03/22 18:55 Nucleated RBC % (auto) 0 % 08/03/22 18:55 Nucleated RBCs # 0.0 /100WBC 08/03/22 18:55 Urine Opiates Screen Negative ng/mL (Negative) 08/03/22 14:47 Ur Barbiturates Screen Negative ng/mL (Negative) 08/03/22 14:47 Ur Phencyclidine Scrn Negative ng/mL (Negative) 08/03/22 14:47 Ur Amphetamines Screen Negative ng/mL (Negative) 08/03/22 14:47 U Benzodiazepines Scrn Negative ng/mL (Negative) 08/03/22 14:47 Urine Cocaine Screen Negative ng/mL (Negative) 08/03/22 14:47 U Marijuana (THC) Screen Positive ng/mL (Negative) H 08/03/22 14:47 Blood Type A Positive 08/03/22 14:43 Rho(D) Type Positive 08/03/22 14:43 Antibody Screen Negative 08/03/22 14:43 Crossmatch See Detail 08/03/22 14:43 Procedures Performed 1. Augmentation of labor 2. ?viable female 3. Manual removal of retained placenta 4. Transfusion of 2 units packed red blood cells Vitals Last Vital Signs Temp 97.9 F 08/04/22 05:22 Pulse 71 08/04/22 09:56 Resp 15 08/04/22 05:22 BP 108/54 08/04/22 09:56 Pulse Ox 99 08/04/22 00:31 O2 Del Method 08/03/22 23:26 Discharge Plan Discharge Patient Disposition: Home Condition: Stable Prescriptions: Continued Multi 27-800 mg-mcg tablet 1 tab PO DAILY Qty: 30 10RF ferrous sulfate 325 mg (65 mg iron) tablet 325 mg PO BID Qty: 60 6RF citalopram [Celexa] 10 mg tablet 10 mg PO DAILY Qty: 30 6RF Discharge Orders: Discharge Order (Routine); Ordered 08/04/22 Ordered By: Monika Mao Discharge Diet: Regular Discharge Activity: Increase activity as tolerated Patient Instructions: Opioid Safety Assessment: A. 1. 39.3-week IUP delivered 2. viable female 3. S/p retained placenta 4. Acute blood loss 5. S/p transfusion 2 units packed red blood cells 6. GBS positive 7. Anxiety 8. UDS positive (THC) Plan of Treatment: P. Discharge patient to home Follow-up with Dr. Galvan in 4 weeks Discharge Attestations COMMERCIAL GREEN BUILDING ARCHITECT Time Spent in Discharge Care*: less than 30 min Coding Level of Care Code Acute Code for Chg Fwd Diagnoses Supervision of other normal Z34.80 (spontaneous vaginal delivery) O80 Retained placenta with hemorrhage O72.0 GBS (group B Streptococcus carrier), +RV culture, currently O99.820 Anxiety and depression F41.9; F32.A Late care O09.30
== END 2022-08-04 19:05 | disposition home or self-care (01) | DRG 807 ==
LOC: OPOB 14:34 → OBGYN 22:21
PROVIDERS: Absent Provider Obstetrics & Gynecology; Admitting Provider Obstetrics & Gynecology; Family Provider Family Medicine; Visit Provider Obstetrics & Gynecology
PROC: 10E0XZZ Delivery of Products of Conception, External Approach (ICD-10-PCS; CPT 59840; principal; 2022-08-03 18:30)
DX: O99.824 Streptococcus B carrier state complicating childbirth (principal); Z37.0 Single live birth; O99.344 Other mental disorders complicating childbirth; O99.324 Drug use complicating childbirth; F41.9 Anxiety disorder, unspecified; F32.A Depression, unspecified; O99.02 Anemia complicating childbirth; D64.9 Anemia, unspecified; F12.90 Cannabis use, unspecified, uncomplicated; O77.0 Labor and delivery complicated by meconium in amniotic fluid; O69.81X0 Labor and delivery complicated by cord around neck, without compression, not applicable or unspecified; O73.0 Retained placenta without hemorrhage; Z3A.39 39 weeks gestation of pregnancy
CPT/HCPCS: 12345; 36415; 36430; 59025; 59409; 80306; 85025; 85027; 86850; 86900; 86920; 88307; 96374; 96376; 99211; J0290; J0330; J1100; J2250; J2405; J2590; J2704; J3010; J7121; P9016

== ENCOUNTER 2024-10-25 20:19 | Emergency (ER) | payer SELFPAY ==
[2024-10-25 20:22] VITALS: BP 105/59; PULSE 73; TEMP 36.8; O2SAT 98; BMI 20.9
[2024-10-25 20:49] VITALS: BP 117/70; PULSE 81; O2SAT 98
--- NOTE | 2024-10-25 20:51 | CTR_ITS ---
PROCEDURE INFORMATION: Exam: CT Abdomen And Pelvis With Contrast Exam date and time: 10/25/2024 10:05 PM Age: 29 years old Clinical indication: Pain; Other: Ruq; Additional info: Ruq/epigastric pain TECHNIQUE: Imaging protocol: Computed tomography of the abdomen and pelvis with contrast. Radiation optimization: All CT scans at this facility use at least one of these dose optimization techniques: automated exposure control; mA and/or kV adjustment per patient size (includes targeted exams where dose is matched to clinical indication); or iterative reconstruction. Contrast material: OMNI 350; Contrast volume: 100 ml; Contrast route: INTRAVENOUS (IV); COMPARISON: US OB follow up [facility] 07/20/2022 8:55 AM RADIATION DOSE METRICS: Total DLP (mGy-cm): 305.45 FINDINGS: Tubes, catheters and devices: Multiple right lower quadrant clips. Lungs: The lung bases are clear. Heart: Heart size is within normal limits. There is no pericardial effusion or pericardial thickening. Liver: Several small right hepatic low-density lesions some which may peripheral nodular enhancement measuring up 1.2 cm consistent with small cysts or liver is otherwise normal. Gallbladder and biliary ducts: The gallbladder is contracted. There is no ductal dilatation. Pancreas: The pancreas is normal. Spleen: The spleen is normal. Adrenal glands: The adrenal glands are normal. Kidneys and ureters: There is normal enhancement of the kidneys. No renal calcifications are identified. There is no hydronephrosis. Stomach and bowel: There is no large or small bowel obstruction. There is no evidence of bowel wall thickening. Several prominent fluid-filled segments of bowel are nonspecific and may be physiologic. Appendix: A normal appendix is not identified. There is no secondary evidence of acute appendicitis. Intraperitoneal space: No inflammatory changes are identified. There is no free fluid or fluid collection seen. There is no pneumoperitoneum. Vasculature: The aorta is normal in course and caliber. No significant atherosclerotic calcifications are present. Lymph nodes: No enlarged lymph nodes are identified. Urinary bladder: The bladder is unremarkable. Reproductive: The uterus is present. Bones/joints: No acute osseous abnormalities are seen. Soft tissues: The soft tissues are within normal limits. CT/CT abdomen pelvis w con* [id number] IMPRESSION: 1. Several prominent fluid-filled segments of bowel are nonspecific and may be physiologic. Enteritis could potentially have this appearance. 2. No other evidence of acute intra-abdominal or pelvic process. 3. Small indeterminate hepatic lesions likely cysts or small hemangiomata. Consider follow-up with ultrasound. Multiphase MR may be required for definitive characterization if clinically indicated.
[2024-10-25 21:14] VITALS: BP 126/75; PULSE 98; RESP 18; O2SAT 96
[2024-10-25 21:20] LABS: Basophils # 0.1 10^3/uL (0.0-0.1); Basophils % 0.7 %; Eosinophils # 0.1 10^3/uL (0.0-0.8); Eosinophils % 1.9 %; Hematocrit 35.6 % (36-47); Lymphocytes % 30.3 %; Mean Corpuscular HGB Conc 31.7 g/dL (30-55); Mean Corpuscular Hemoglobin 26.9 pg (27-33); Mean Corpuscular Volume 84.8 fl (85-98); Mean Platelet Volume 9.6 fL (7.4-10.4); Monocytes # 0.4 10^3/uL (0.2-0.9); Monocytes % 5.7 %; Neutrophils % 61.3 %; Nucleated Red Blood Cells % 0 %; Platelet Count 257 10^3/cmm (157-399); Red Cell Distribution Width 13.8 % (12.1-15.1)
[2024-10-25 21:22] LABS: HCG Qualitative Urine. Negative (Negative)
[2024-10-25 21:33] LABS: Alanine Aminotransferase 9 U/L (0-33); Albumin Level 4.6 g/dL (3.5-5.2); Alkaline Phosphatase 59 U/L (35-105); Anion Gap 15.2 (5-19); Aspartate Amino Transferase 17 U/L (0-32); Blood Urea Nitrogen 10 mg/dL (6-20); Carbon Dioxide 23 mmol/L (22-29); Chloride 108 mmol/L (98-107); Creatinine Clr Calc Pharmacy 109.7638; Globulin 2.7 g/dL (1.3-4.6); Glomerular Filtration Rate 98.3 mL/min (90-130); Glucose 85 mg/dL (65-115); Lipase 33 U/L (13-60); Osmolality Calculated 292 mOsm/kg (285-295); Potassium 4.2 mmol/L (3.5-5.1); Sodium 142 mmol/L (136-145); Total Bilirubin 0.2 mg/dL (0.15-1.2); Total Protein 7.3 g/dL (6.6-8.7)
[2024-10-25 22:02] LABS: Bacteria Urine None Seen /hpf; Hyaline Casts Urine 0-4 /lpf; RBC Urine 0-2 /hpf (0-2); Squamous Epithelial Cell Urine 0-5 /hpf (0-5); WBC Urine 0-5 /hpf (0-5)
[2024-10-25 22:04] LABS: Bilirubin Urine Neg (Negative); Blood Urine Neg (Negative); Glucose Urine UA Norm (Normal); Ketones Urine Negative (Negative); Leukocyte Esterase Urine Negative (Negative); Nitrate Urine Negative (Negative); Protein Urine Neg (Negative); Urine Appearance Clear (CLEAR); Urine Color Yellow (Yellow); Urobilinogen Urine Neg (Negative); pH Urine 5 (5-7)
[2024-10-25] MEDS: iohexol 350 mg/mL 500 mL Btl (per mL) IV (22:08)
[2024-10-25 22:17] VITALS: BP 113/60; PULSE 60; O2SAT 100
[2024-10-25 23:12] VITALS: BP 103/73; PULSE 56; O2SAT 97
[2024-10-25 23:33] VITALS: BP 101/72; PULSE 58; O2SAT 98
[2024-10-26 00:14] VITALS: BP 115/77; PULSE 61; O2SAT 97
[2024-10-26 00:51] VITALS: BP 132/83; PULSE 51; O2SAT 99
--- NOTE | 2024-10-26 05:31 | W.ED.ABDPA2 ---
HPI - Abdominal Pain General: Chief Complaint: Abdominal Pain Stated Complaint: center bottem of chest bump painful Time Seen by Provider: 10/25/24 20:38 History of Present Illness: Patient is a generally well-appearing 29-year-old female seen for epigastric pain and sensation of bloating which have been ongoing for last 2 days. She endorses mild nausea but has not vomited. She denies fever, dysuria, frequency, diarrhea, constipation associated with the symptoms. She has never had any abdominal surgeries. She has never had pancreatitis and does not drink excessively. Pain is not worse after eating necessarily. She has no other acute complaints. Related Data Previous Rx's ?Medication ?Instructions ?Recorded vit 122-ferrous fumarate 1 tab PO DAILY #30 tabs 11/20/20 27 mg iron-folic acid 800 mcg tablet ( Multi) citalopram 10 mg tablet (Celexa) 10 mg PO DAILY #30 tabs 05/06/22 ferrous sulfate 325 mg (65 mg 325 mg PO BID #60 tabs 06/26/22 iron) tablet Allergies Allergy/AdvReac Type Severity Reaction Status Date / Time No Known Allergies Allergy Verified 10/25/24 20:28 FOR[facility]LY [facility] ED PFS: Medical History Anxiety and depression Diagnosed first at the age of 14 and was on medication. Has been on medication on and off in the past though not for a long while. Does not have a therapist. GBS (group B Streptococcus carrier), +RV culture, currently No pertinent past medical history Denies diabetes, asthma, hypertension, seizures, DVT/PE PCP: To Clinic Supervision of other normal Surgical History History of tonsillectomy and adenoidectomy At the age of 12 Hx of appendectomy 2014--laparoscopic procedure Hx of hernia repair 2014--done at same time as appendectomy. Per patient no mesh was used S/P dilation and curettage October 2019 for VIP Family History Mother Breast cancer Diagnosed at approximately age 50 Unknown Unknown family medical history patient was adopted and does not know all the details of her family history. Denies family history of Colon cancer Ovarian cancer Diabetes Heart disease Hyperlipidemia Bleeding disorder Hypertension Uterine cancer Thyroid disease Stroke Social History Substance/Drug Use: unknown Do you think of yourself as: Straight/Heterosexual Female Reproductive History: Para: 4 Physical Exam Const: COMMON NORMALS: no acute distress, patient oriented x3 and alert HENMT: COMMON NORMALS: normocephalic and atraumatic HEAD & SCALP: normocephalic and atraumatic Eye: COMMON NORMALS: Equal, round and reactive pupils present, EOMs intact bilaterally and no scleral icterus PUPIL: Yes Equal, round and reactive pupils present Resp: COMMON NORMALS: normal respiratory effort and No retractions Cardio: COMMON NORMALS: regular rate, regular rhythm and No murmurs present (Cardio) RATE: regular rate RHYTHM: regular rhythm : OTHER: Exam is largely unremarkable with mild epigastric tenderness. Negative Calixto sign. No obvious bloating. Neuro: COMMON NORMALS: patient oriented x3 SENSORIUM/ORIENTATION: Yes alert Skin: COMMON NORMALS: no rashes or lesions noted GENERAL SKIN EXAM: no rashes or lesions noted Course Vital Signs: Vital signs: Vital Signs Temperature 98.3 F 10/25/24 20:22 Pulse Rate 51 L 10/26/24 00:51 Respiratory Rate 18 10/25/24 21:14 Blood Pressure 132/83 10/26/24 00:51 Pulse Oximetry 99 10/26/24 00:51 Oxygen Delivery Me thod Room Air 10/25/24 20:22 MDM - Abdominal Pain Medical Decision Making Patient remained hemodynamically stable throughout ED course. CT scan shows mildly dilated loops of bowel containing fluid possibly consistent with virally mediated enteritis. I do not suspect pancreatitis, acute cholecystitis, SBO, or any other emergent process warranting further workup at this time. She be discharged home in stable improved condition and will use [id number] medications for symptoms. She shows good understanding and agrees with plan. Lab Data 10/25/24 21:11 10/25/24 21:11 Labs/Radiology: Radiology Impressions Abdomen/Pelvis CT 10/25/24 20:51 IMPRESSION: 1. Several prominent fluid-filled segments of bowel are nonspecific and may be physiologic. Enteritis could potentially have this appearance. 2. No other evidence of acute intra-abdominal or pelvic process. 3. Small indeterminate hepatic lesions likely cysts or small hemangiomata. Consider follow-up with ultrasound. Multiphase MR may be required for definitive characterization if clinically indicated. Laboratory Results WBC 6.70 10^3/uL (3.29-11.43) 10/25/24 21:11 RBC 4.20 10^6/uL (3.85-5.65) 10/25/24 21:11 Hgb 11.30 g/dL (11.27-16.99) 10/25/24 21:11 Hct 35.6 % (36-47) L 10/25/24 21:11 MCV 84.8 fl (85-98) L 10/25/24 21:11 MCH 26.9 pg (27-33) L 10/25/24 21:11 MCHC 31.7 g/dL (30-55) 10/25/24 21:11 RDW 13.8 % (12.1-15.1) 10/25/24 21:11 Plt Count 257 10^3/cmm (157-399) 10/25/24 21:11 MPV 9.6 fL (7.4-10.4) 10/25/24 21:11 Neut % (Auto) 61.3 % 10/25/24 21:11 Lymph % (Auto) 30.3 % 10/25/24 21:11 Woodward % (Auto) 5.7 % 10/25/24 21:11 Eos % (Auto) 1.9 % 10/25/24 21:11 Baso % (Auto) 0.7 % 10/25/24 21:11 Neut # (Auto) 4.10 10^3/uL (1.8-7.7) 10/25/24 21:11 Lymph # (Auto) 2.0 10^3/uL (0.8-4.8) 10/25/24 21:11 Woodward # (Auto) 0.4 10^3/uL (0.2-0.9) 10/25/24 21:11 Eos # (Auto) 0.1 10^3/uL (0.0-0.8) 10/25/24 21:11 Baso # (Auto) 0.1 10^3/uL (0.0-0.1) 10/25/24 21:11 Nucleated RBC % (auto) 0 % 10/25/24 21:11 Nucleated RBCs # 0.0 /100WBC 10/25/24 21:11 Sodium 142 mmol/L (136-145) 10/25/24 21:11 Potassium 4.2 mmol/L (3.5-5.1) 10/25/24 21:11 Chloride 108 mmol/L (98-107) H 10/25/24 21:11 Carbon Dioxide 23 mmol/L (22-29) 10/25/24 21:11 Anion Gap 15.2 (5-19) 10/25/24 21:11 BUN 10 mg/dL (6-20) 10/25/24 21:11 Creatinine 0.7 mg/dL (0.5-0.9) 10/25/24 21:11 GFR Calculation 98.3 mL/min (90-130) 10/25/24 21:11 Glucose 85 mg/dL (65-115) 10/25/24 21:11 Calculated Osmolality 292 mOsm/kg (285-295) 10/25/24 21:11 Calcium 9.0 mg/dL (8.5-10.5) 10/25/24 21:11 Total Bilirubin 0.2 mg/dL (0.15-1.2) 10/25/24 21:11 AST 17 U/L (0-32) 10/25/24 21:11 ALT 9 U/L (0-33) 10/25/24 21:11 Alkaline Phosphatase 59 U/L (35-105) 10/25/24 21:11 Total Protein 7.3 g/dL (6.6-8.7) 10/25/24 21:11 Albumin 4.6 g/dL (3.5-5.2) 10/25/24 21:11 Globulin 2.7 g/dL (1.3-4.6) 10/25/24 21:11 Lipase 33 U/L (13-60) 10/25/24 21:11 HCG, Qual Negative (Negative) 10/25/24 21:08 Urine Color Yellow (Yellow) 10/25/24 21:08 Urine Appearance Clear (CLEAR) 10/25/24 21:08 Urine pH 5 (5-7) 10/25/24 21:08 Ur Specific Saline 1.020 (1.005-1.030) 10/25/24 21:08 Urine Protein Neg (Negative) 10/25/24 21:08 Urine Glucose (UA) Norm (Normal) 10/25/24 21:08 Urine Ketones Negative (Negative) 10/25/24 21:08 Urine Blood Neg (Negative) 10/25/24 21:08 Urine Nitrate Negative (Negative) 10/25/24 21:08 Urine Bilirubin Neg (Negative) 10/25/24 21:08 Urine Urobilinogen Neg mg/dL (Negative) 10/25/24 21:08 Ur Leukocyte Esterase Negative (Negative) 10/25/24 21:08 Urine RBC 0-2 /hpf (0-2) 10/25/24 21:08 Urine WBC 0-5 /hpf (0-5) 10/25/24 21:08 Ur Squamous Epith Cells 0-5 /hpf (0-5) 10/25/24 21:08 Amorphous Sediment Not Reportable 10/25/24 21:08 Urine Bacteria None seen /hpf (NONE) 10/25/24 21:08 Hyaline Casts 0-4 /lpf H 10/25/24 21:08 All radiology interpretation(s) finalized by discharge Discharge Plan Discharge Patient Disposition: Home Clinical Impression: Enteritis Condition: Stable Prescriptions: No Action Multi 27-800 mg-mcg tablet 1 tab PO DAILY Qty: 30 10RF ferrous sulfate 325 mg (65 mg iron) tablet 325 mg PO BID Qty: 60 6RF citalopram [Celexa] 10 mg tablet 10 mg PO DAILY Qty: 30 6RF Discharge Orders: Discharge ED (Routine); Ordered 10/26/24 Ordered By: Victor Hugo Carroll Referrals: [facility] [Other] Discharge Diet: Advance as tolerated Discharge Activity: Resume usual activity Patient Instructions: Enteritis (ED) Print Language: Divehi Coding Level of Care Code ED Director Of Supply Chain for Tonio Solorzano
== END 2024-10-26 00:53 | disposition home or self-care (01) ==
PROVIDERS: Emergency Provider Student in an Organized Health Care Education/Training Program
DX: K52.9 Noninfective gastroenteritis and colitis, unspecified (principal)
CPT/HCPCS: 74177; 80053; 81001; 81025; 83690; 85025; 99284